=== PATIENT | male | born 1990 | race Caucasian/White ===

== ENCOUNTER 2020-03-20 09:00 | Emergency (ER) | payer BC ==
--- NOTE | 2020-03-20 09:27 | EDM.PDOC ---
ED HPI GENERAL MEDICAL PROBLEM - General Chief Complaint: General Stated Complaint: RT SIDE JAW SWOLLEN Time Seen by Provider: 03/20/20 09:19 - History of Present Illness INITIAL COMMENTS - FREE TEXT/NARRATIVE: History of present illness: [] Patient presents with jaw pain and swelling that has been present for 3 days. No fever no chills no difficulty swallowing has not seen a dentist nothing makes it better or worse Review of systems: As per history of present illness and below otherwise all systems reviewed and negative. Past medical history: As per history of present illness and as reviewed below otherwise noncontri butory. Surgical history: As per history of present illness and as reviewed below otherwise noncontributory. Social history: No reported history of drug or alcohol abuse. Family history: As per history of present illness and as reviewed below otherwise noncontributory. Physical exam: HEENT: Atraumatic, normocephalic, pupils reactive, negative for conjunctival pallor or scleral icterus, mucous membranes moist, throat clear, neck supple, nontender, trachea midline. Swelling in the right mandible lateral to the first molar there is no alexa dental fracture or caries noted on exam the patient has no trismus no adenopathy Lungs: Clear to auscultation, breath sounds equal bilaterally, chest nontender. Heart: S1S2, regular, negative for clicks, rubs, or JVD. Abdomen: Soft, nondistended, nontender. Negative for masses or hepatosplenomegaly. Negative for costovertebral tenderness. Pelvis: Stable nontender. Genitourinary: Deferred. Rectal: Deferred. Extremities: Atraumatic, negative for cords or calf pain. Neurovascular unremarkable. Neuro: Awake, alert, oriented. Cranial nerves II through XII unremarkable. Cerebellum unremarkable. Motor and sensory unremarkable throughout. Exam nonf ocal. Diagnostics: [] Therapeutics: [] Impression: Dental abscess [] Plan: Pen VK naproxen follow-up with the dentist [] Definitive disposition and diagnosis as appropriate pending reevaluation and review of above. Right Jaw Pain Score (Numeric/FACES): 6 - Related Data Allergies Allergy/AdvReac Type Severity Reaction Status Date / Time No Known Allergies Allergy Verified 03/20/20 09:17 Home Meds: Home Meds Naproxen [Naprosyn] 500 mg PO Q12HR #20 tab 09/05/20 [Rx] Penicillin V Potassium [Veetids] 500 mg PO Q6H #40 tab 03/20/20 [Rx] ED ROS GENERAL - Review of Systems Review Of Systems: See Below ED EXAM, GENERAL - Physical Exam Exam: See Below Course - Vital Signs Last Recorded V/S: Last Vital Signs Temp 36.8 C 03/20/20 09:08 Pulse 66 03/20/20 09:08 Resp 16 03/20/20 09:08 BP 144/91 H 03/20/20 09:08 Pulse Ox 98 03/20/20 09:08 Departure - Departure Time of Disposition: Disposition: Home, Self-Care 01 Condition: Good Clinical Impression: Dental abscess - Discharge Information *PRESCRIPTION DRUG MONITORING PROGRAM REVIEWED*: Not Applicable *COPY OF PRESCRIPTION DRUG MONITORING REPORT IN PATIENT LORENZO: Not Applicable Instructions: Dental Abscess Referrals: PCP,None [Primary Care Provider] - Additional Instructions: The following information is given to patients seen in the emergency department who are being discharged to home. This information is to outline your options for follow-up care. We provide all patients seen in our emergency department with a follow-up referral. The need for follow-up, as well as the timing and circumstances, are variable depending upon the specifics of your emergency department visit. If you don't have a primary care physician on staff, we will provide you with a referral. We always advise you to contact your personal physician following an emergency department visit to inform them of the circumstance of the visit and for follow-up with them and/or the need for any referrals to a consulting specialist. The emergency department will also refer you to a specialist when appropriate. This referral assures that you have the opportunity for follow-up care with a specialist. All of these measure are taken in an effort to provide you with optimal care, which includes your follow-up. Under all circumstances we always encourage you to contact your private physician who remains a resource for coordinating your care. When calling for follow-up care, please make the office aware that this follow-up is from your recent emergency room visit. If for any reason you are refused follow-up, please contact the [facility] Emergency Department at and asked to speak to the emergency department charge nurse. You need to follow-up with a dentist. Sepsis Event Note (ED) - Evaluation Sepsis Screening Result: No Definite Risk - Focused Exam Vital Signs: Vital Signs Temp Pulse Resp BP Pulse Ox 03/20/20 09:08 36.8 C 66 16 144/91 H 98
== END 2020-03-20 09:42 | disposition home or self-care (01) ==
LOC: MW.ED 09:00
DX: K04.7 Periapical abscess without sinus (principal)
CPT/HCPCS: 99282

== ENCOUNTER 2021-05-04 16:16 | Emergency (ER) | payer BC ==
[2021-05-04] MEDS ORDERED: Sodium Chloride 0.9% 1,000 ML IV ONE (17:00)
--- NOTE | 2021-05-04 17:01 | EDM.PDOC ---
ED HPI GENERAL MEDICAL PROBLEM - General Chief Complaint: Abdominal Pain Stated Complaint: ABDOMINAL PAIN Time Seen by Provider: 05/04/21 16:19 Source of Information: Reports: Patient History Limitations: Reports: No Limitations - History of Present Illness INITIAL COMMENTS - FREE TEXT/NARRATIVE: HISTORY AND PHYSICAL: History of present illness: Patient is a 39-year-old male who presents to the emergency room with complaints of left lower abdominal pain. He does have mild nausea associated with this, without vomiting. Patient denies any fever, chills, headache, change in vision, syncope or near syncope. Denies any chest pain, back pain, shortness of breath or cough. Denies any diarrhea, constipation or dysuria. Has not noted any blood in urine or stool. Denies any testicular pain, redness or swelling. Patient has been eating and drinking appropriately. No recent travel or sick contacts. Review of systems: As per history of present illness and below otherwise all systems reviewed and negative. Past medical history: As per history of present illness and as reviewed below otherwise noncontributory. Surgical history: As per history of present illness and as reviewed below otherwise noncontributory. Social history: See social history for further information Family history: As per history of present illness and as reviewed below otherwise noncontribut ory. Physical exam: General: Well developed and well nourished. Alert and orientated x 3. Nontoxic in appearance and in no acute distress. Vital signs are stable and have been reviewed by me. Nursing notes were reviewed. HEENT: Atraumatic, normocephalic, pupils equal and reactive bilaterally, negative for conjunctival pallor or scleral icterus, mucous membranes moist, TMs normal bilaterally, throat clear, neck supple, nontender, trachea midline. No drooling or trismus noted. No meningeal signs. No hot potato voice noted. Lungs: Clear to auscultation bilaterally. No wheezes, rales, or rhonchi. Chest nontender. Normal work of breathing, no accessory muscles used. Heart: S1S2, regular rate and rhythm without overt murmur, gallops, or rubs. No JVD. No peripheral edema Abdomen: Soft, nondistended, mild left lower quadrant tenderness to palpation. Normoactive bowel sounds. Negative for masses or costovertebral tenderness. Skin: Intact, warm, dry. No lesions or rashes noted. Hematologic: No petechiae or purpra. Mucosa appropriate color and normal nail bed color and refill. Extremities: Atraumatic, moves all extremities per self without difficulty or deficits, negative for cords or calf pain. Neurovascular unremarkable. Neuro: Awake, alert, oriented. Cranial nerves II through XII unremarkable. Cerebellum unremarkable. Motor and sensory unremarkable throughout. Exam nonfocal. Psychiatric: Mood and affect are appropriate. Normal thought process. Answering questions appropriately. Please note that the patient was seen and evaluated during the 2019 SARS-CoV-2 novel coronavirus pandemic period. Community viral transmission is ongoing at time of this encounter and the emergency department is operating under pandemic response procedures. Medical Decision Making: Patient is a 31-year-old male who presents to the emergency room with complaints left low abdominal pain. He states the left lower abdominal pain that wraps up almost to the left flank region. He is mildly tender in the left lower quadrant. Denies any dysuria, hematuria, testicular pain/redness. No concerns for STIs. No change in bowel habits. CT shows a partially obstructing right UPJ 4 mm calculus. Mild hydronephrosis. Mild derangements with labs. I have talked with the patient about today's findings, in addition to providing specific details for plan of care. Reassessment at the time of disposition demonstrates that the patient is in no acute distress. Discussed follow up with urology. The patient is stable for discharge, counseling was provided and we discussed in great detail signs and symptoms that would prompt them to return to the Emergency Department. Medication, follow up and supportive care measures were reviewed and discussed. Voices understanding and is agreeable to plan of care. Denies any further questions or concerns at this time. Diagnostics: CBC, CMP, Lipase, UA Therapeutics: IV fluids, Toradol, Zofran Prescription: [place], Zofran, Flomax Impression: Kidney stone Plan: 1. You were evaluated today on an emergent basis. Your CT shows a 4mm kidney stone of the left ureter. Please increase your fluids. Take the medications as directed. Strain your urine. 2. You can alternate Tylenol and ibuprofen as needed for pain and fever management. 3. We encourage you to follow up with urology in the next few days for re- evaluation and further care/management. 4. If your symptoms should worsen, new symptoms develop or any of the signs and symptoms we discussed should arise please return to the emergency room or call 911 (if needed). Definitive disposition and diagnosis as appropriate pending reevaluation and review of above. Abdomen Pain Score (Numeric/FACES): 6 - Related Data Allergies Allergy/AdvReac Type Severity Reaction Status Date / Time No Known Allergies Allergy Verified 05/04/21 16:32 Home Meds: Home Meds Hydrocodone/Acetaminophen [HYDROcodone-Acetaminophen 5-325 MG] 1 - 2 tab PO Q4HR PRN #20 tablet 05/04/21 [Rx] Ondansetron [Zofran ODT] 4 mg PO Q6H PRN #8 tab.dis 05/04/21 [Rx] Tamsulosin HCl [Flomax] 0.4 mg PO DAILY #5 cap.er.24h 05/04/21 [Rx] Past Medical History HEENT History: Reports: None Cardiovascular History: Reports: None Respiratory History: Reports: None Gastrointestinal History: Reports: None Genitourinary History: Reports: None Musculoskeletal History: Reports: None Neurological History: Reports: None Psychiatric History: Reports: None Endocrine/Metabolic History: Reports: None Hematologic History: Reports: None Immunologic History: Reports: None Oncologic (Cancer) History: Reports: None Dermatologic History: Reports: None - Infectious Disease History Infectious Disease History: Reports: None Social & Family History - Tobacco Use Second Hand Smoke Exposure: No - Caffeine Use Caffeine Use: Reports: None - Recreational Drug Use Recreational Drug Use: No ED ROS GENERAL - Review of Systems Review Of Systems: Comprehensive ROS is negative, except as noted in HPI. ED EXAM, GI/ABD - Physical Exam Exam: See Below (See dictation) Course - Vital Signs Last Recorded V/S: Last Vital Signs Temp 97.6 F 05/04/21 16:27 Pulse 91 05/04/21 16:27 Resp 20 05/04/21 16:27 BP 144/66 H 05/04/21 16:27 Pulse Ox 98 05/04/21 16:27 - Orders/Labs/Meds Labs: Laboratory Tests 05/04/21 05/04/21 05/04/21 Range/Units 17:00 17:00 18:27 WBC 5.88 (4.0-11.0) K/uL RBC 4.96 (4.50-5.90) M/uL Hgb 15.0 (13.0-17.0) g/dL Hct 42.8 (38.0-50.0) % MCV 86.3 (80.0-98.0) fL MCH 30.2 (27.0-32.0) pg MCHC 35.0 (31.0-37.0) g/dL RDW Std Deviation 41.4 (28.0-62.0) fl RDW Coeff of [place] 13 (11.0-15.0) % Plt Count 203 (150-400) K/uL MPV 10.50 (7.40-12.00) fL Neut % (Auto) 53.2 (48.0-80.0) % Lymph % (Auto) 35.0 (16.0-40.0) % [place] % (Auto) 8.2 (0.0-15.0) % Eos % (Auto) 3.4 (0.0-7.0) % Baso % (Auto) 0.2 (0.0-1.5) % Neut # (Auto) 3.1 (1.4-5.7) K/uL Lymph # (Auto) 2.1 (0.6-2.4) K/uL [place] # (Auto) 0.5 (0.0-0.8) K/uL Eos # (Auto) 0.2 (0.0-0.7) K/uL Baso # (Auto) 0.0 (0.0-0.1) K/uL Nucleated RBC % 0.0 /100WBC Nucleated RBCs # 0 K/uL Sodium 141 (136-148) mmol/L Potassium 4.5 (3.5-5.1) mmol/L Chloride 99 (98-107) mmol/L Carbon Dioxide 30.5 (21.0-32.0) mmol/L BUN 20 H (7.0-18.0) mg/dL Creatinine 1.2 (0.8-1.3) mg/dL Est Cr Clr Drug Dosing TNP Estimated GFR (MDRD) > 60.0 ml/min Glucose 125 H (74-106) mg/dL Calcium 8.6 (8.5-10.1) mg/dL Total Bilirubin 0.3 (0.2-1.0) mg/dL AST 66 H (15-37) IU/L ALT 66 H (14-63) IU/L Alkaline Phosphatase 127 H (46-116) U/L Total Protein 7.3 (6.4-8.2) g/dL Albumin 3.9 (3.4-5.0) g/dL Globulin 3.4 (2.6-4.0) g/dL Albumin/Globulin Ratio 1.1 (0.9-1.6) Lipase 88 (73-393) U/L Urine Color BROWN Urine Appearance CLOUDY Urine pH 7.5 (5.0-8.0) Ur Specific [place] 1.020 (1.001-1.035) Urine Protein 30 H (NEGATIVE) mg/dL Urine Glucose (UA) NEGATIVE (NEGATIVE) mg/dL Urine Ketones NEGATIVE (NEGATIVE) mg/dL Urine Occult Blood LARGE H (NEGATIVE) Urine Nitrite NEGATIVE (NEGATIVE) Urine Bilirubin SMALL H (NEGATIVE) Urine Ictotest NEGATIVE Urine Urobilinogen 1.0 (<2.0) EU/dL Ur Leukocyte Esterase NEGATIVE (NEGATIVE) Urine RBC TOO NUMEROUS TO CT (0-2/HPF) Urine WBC 2-4 (0-5/HPF) Ur Epithelial Cells FEW (NONE-FEW) Urine Bacteria FEW (NEGATIVE) Urine Mucus LIGHT (NONE-MOD) Meds: Medications Discontinued Medications Generic Name Dose Route Start Last Admin Trade Name Freq PRN Reason Stop Dose Admin Sodium Chloride 1,000 mls @ 999 mls/hr 05/04/21 17:00 05/04/21 17:02 Normal Saline IV 05/04/21 18:00 999 mls/hr STAT ONE Administration Ketorolac Tromethamine 30 mg 05/04/21 18:01 05/04/21 18:07 Ketorolac 30 Mg/Ml Sdv IVPUSH 05/04/21 18:02 30 mg ONETIME ONE Administration Ondansetron HCl 4 mg 05/04/21 18:01 05/04/21 18:07 Ondansetron 4 Mg/2 Ml Sdv IVPUSH 05/04/21 18:02 4 mg ONETIME ONE Administration Tamsulosin HCl 0.4 mg 05/04/21 18:16 05/04/21 18:26 Tamsulosin 0.4 Mg Cap.Er PO 05/04/21 18:17 0.4 mg ONETIME ONE Administration Departure - Departure Time of Disposition: 19:10 Disposition: Home, Self-Care 01 Clinical Impression: Kidney stone on left side - Discharge Information Prescriptions: Tamsulosin HCl [Flomax] 0.4 mg PO DAILY #5 cap.er.24h Hydrocodone/Acetaminophen [HYDROcodone-Acetaminophen 5-325 MG] 1 - 2 tab PO Q4HR PRN #20 tablet PRN Reason: Pain (Moderate 4-6) Ondansetron [Zofran ODT] 4 mg PO Q6H PRN #8 tab.dis PRN Reason: Nausea Instructions: Kidney Stones, [id number] Referrals: PCP,None [Primary Care Provider] - Forms: ED Department Discharge Additional Instructions: The following information is given to patients seen in the emergency department who are being discharged to home. This information is to outline your options for follow-up care. We provide all patients seen in our emergency department with a follow-up referral. The need for follow-up, as well as the timing and circumstances, are variable depending upon the specifics of your emergency department visit. If you don't have a primary care physician on staff, we will provide you with a referral. We always advise you to contact your personal physician following an emergency department visit to inform them of the circumstance of the visit and for follow-up with them and/or the need for any referrals to a consulting specialist. The emergency department will also refer you to a specialist when appropriate. This referral assures that you have the opportunity for follow-up care with a specialist. All of these measure are taken in an effort to provide you with optimal care, which includes your follow-up. Under all circumstances we always encourage you to contact your private physician who remains a resource for coordinating your care. When calling for follow-up care, please make the office aware that this follow-up is from your recent emergency room visit. If for any reason you are refused follow-up, please contact the [facility] Emergency Department at and asked to speak to the emergency department charge nurse. Dr. Chen and Dr Chan [facility] [address] [place] [address] (Located on 5th Floor) [place] [id number] [facility] [address] [place] [id number] [address] Michael Venegas [facility] [address] [place] [address] Thank you for choosing the [facility] emergency department in [facility] for your medical needs today. It was a pleasure caring for you. Today you were seen in the emergency department for left-sided abdominal pain Your prescription was electronically sent to: 1. You were evaluated today on an emergent basis. Your CT shows a 4mm kidney stone of the left ureter. Please increase your fluids. Take the medications as directed. Strain your urine. 2. You can alternate Tylenol and ibuprofen as needed for pain and fever management. 3. We encourage you to follow up with urology in the next few days for re- evaluation and further care/management. 4. If your symptoms should worsen, new symptoms develop or any of the signs and symptoms we discussed should arise please return to the emergency room or call 911 (if needed). Sepsis Event Note (ED) - Evaluation Sepsis Screening Result: No Definite Risk - Focused Exam Vital Signs: Vital Signs Temp Pulse Resp BP Pulse Ox 05/04/21 16:27 97.6 F 91 20 144/66 H 98
[2021-05-04 17:30] LABS: BLOOD UREA NITROGEN,BUN 20 mg/dL (7.0-18.0); CARBON DIOXIDE,CO2 30.5 mmol/L (21.0-32.0); CHLORIDE,CL 99 mmol/L (98-107); GLUCOSE RANDOM 125 mg/dL (74-106); LIPASE 88 U/L (73-393); POTASSIUM,K 4.5 mmol/L (3.5-5.1); SODIUM,NA 141 mmol/L (136-148)
[2021-05-04] MEDS ORDERED: Ketorolac 30 MG/ML SDV IVPUSH ONE (18:01)
[2021-05-04] MEDS ORDERED: Ondansetron 4 MG/2 ML SDV IVPUSH ONE (18:01)
--- NOTE | 2021-05-04 18:10 | CT ---
INDICATION: Left abdominal pain. COMPARISON: None. TECHNIQUE: Noncontrast study. FINDINGS: A 4 mm calcified nephrolithiasis at the left ureteral pelvic junction with mild hydronephrosis above it. No perinephric stranding. No other calculus. Right kidney is normal. Normal bowel. No air or fluid in the peritoneum. Lung bases are clear. IMPRESSION: Partially obstructing right UPJ 4 mm calculus. Please note that all CT scans at this facility use dose modulation, iterative reconstruction, and/or weight-based dosing when appropriate to reduce radiation dose to as low as reasonably achievable. Dictated by Shantanu Kate MD @ 05/04/2021 6:08:04 PM (Electronically Signed)
[2021-05-04] MEDS ORDERED: Tamsulosin 0.4 MG Cap.ER PO ONE (18:16)
== END 2021-05-04 19:46 | disposition home or self-care (01) ==
LOC: MW.ED 16:16
DX: N13.2 Hydronephrosis with renal and ureteral calculous obstruction (principal)
CPT/HCPCS: 36415; 74176; 80053; 81001; 83690; 85025; 96374; 96375; 99284; A9270; J1885; J2405; J7030